=== PATIENT | male | born 1975 | race Caucasian/White ===

== ENCOUNTER 2019-11-19 08:50 | Emergency (ER) | payer OTHER, SELFPAY ==
[2019-11-19 08:31] VITALS: BMI 34.2
[2019-11-19 08:52] VITALS: BP 207/123; PULSE 92; RESP 16; TEMP 36.4; O2SAT 98; BMI 34.2
--- NOTE | 2019-11-19 09:09 | ED.VIS.GEN ---
History of Present Illness Chief Complaint: Upper Extremity Injury Informant: Patient Onset: Weeks Context: Gradual Onset Timing: Continuous Narrative: Patient is a 44-year-old male with history of gout presenting with elevated blood pressure as well as concern for gouty flare to his left hand. Patient went to the [facility] clinic earlier today to be evaluated for his hands. There his blood pressure was elevated he was sent to the emergency room for further evaluation. Patient states he has been told that he has had mildly high blood pressure in the past but was never started any medication. He last saw primary care doctor about 3 years ago. He notes that he has had multiple gouty flares in his legs but never in his hands. He states he has been having pain, redness and swelling for about a month. The symptoms seem to be worse over his fourth and fifth metacarpals. He states pain is worse with movement especially when he tries to lift something. He denies any fever, chills or other symptoms. He is not take any medication and has been intermittently taking Aleve for his symptoms currently. Past Medical History - Allergies and Home Meds Allergies/Adverse Reactions: Allergies No Known Allergies Allergy (Verified 11/19/19 08:50) Primary Care Physician: Tai Pascal DO [NON CLINICAL AFFILIATE] - Past Medical History: - - gout Surgical History: no surgical history Smoking Status: Never smoker Alcohol: None Drugs: None Review of Systems General: Denies: Chills, Fever, Malaise, Sweats Eyes: Denies: Visual changes - bilaterally, Diplopia ENT: Denies: Rhinorrhea, Sore throat Cardiovascular: Denies: Chest pain, Palpitations Respiratory: Denies: Dyspnea, Cough, Dyspnea on exertion Gastrointestinal: Denies: Abdominal pain, Nausea, Vomiting, Diarrhea, Melena, Hematochezia Genitourinary: Denies: Dysuria, Hematuria, Frequency Musculoskeletal: Reports: Swelling - left hand , Extremity Pain - left hand . Denies: Back pain Skin: Reports: Rash - left hand redness . Denies: Wounds Neurological: Denies: Headache, Weakness, Numbness Physical Exam Vital Signs/Narrative: Vital Signs Temp Pulse Resp BP Pulse Ox 11/19/19 08:52 97.5 F L 92 16 207/123 H 98 Inital Vital Signs reviewed: Yes General: Well nourished, Well developed, No Acute Distress Head: Normocephalic, Atraumatic Eyes: Perrl, EOMI ENT: Moist mucous membranes, No rhinorrhea Neck: Supple, Nontender Cardiovascular: Regular rate, Regular rhythm, No murmurs Respiratory: No distress, CTA bilaterally, Chest nontender. Negative for: Rhonchi, Wheezing Abdomen: Soft, Nontender, Nondistended, Normal bowel sounds Back: Nontender, Normal Inspection Extremities: Tenderness, Edema, - - Tenderness palpation with range of motion of the left fourth and fifth MCPs as well as the wrist, no pinpoint bony tenderness, soft tissue swelling diffusely of the left hand Skin: No rash, Rash - Edema and warmth of the left lateral hand, dorsal aspect, no streaking or fluctuance Neurological: Alert, Oriented x3, Cranial nerves II-XII grossly intact, Normal Strength, Normal Sensation Psychological: Normal affect, Normal Mood Diagnostic/Tx/Re-eval Clinical Impression(s) from Imaging Studies Hand X-Ray 11/19/19 09:24 IMPRESSION: Normal x-ray examination of the hand. Electronically Signed: Wilder Barbosa, at 9:46 EST Tel , Service support , Laboratory Data 11/19/19 11/19/19 09:16 09:16 WBC 4.7 RBC 4.59 L Hgb 15.2 Hct 44.8 MCV 97.6 H MCH 33.1 H MCHC 33.9 RDW Std Deviation 41.8 RDW Coeff of Liz 11.7 Plt Count 224 MPV 9.1 Immature Gran % (Auto) 0.400 Neut % (Auto) 66.9 Lymph % (Auto) 20.5 [place] % (Auto) 7.5 Eos % (Auto) 3.8 Baso % (Auto) 0.9 Absolute Neuts (auto) 3.1 Absolute Lymphs (auto) 0.96 Nucleated RBC % 0 Sodium 137 Potassium 4.2 Chloride 103 Carbon Dioxide 31.0 Anion Gap 3 L BUN 13 Creatinine 1.05 Estim Creat Clear Calc 85.95 Est GFR (MDRD) Af Amer 98 Est GFR (MDRD) Non-Af 81 BUN/Creatinine Ratio 12.4 Glucose 115 H Calcium 9.2 - Medical Decision Making Patient is brought to the emergency room for concern of elevated blood pressure at outpatient clinic. Patient is hypertensive in the emergency room but he is otherwise asymptomatic. He does not have any chest pain, stroke symptoms or signs/symptoms consistent with hypertensive emergency. I did check a creatinine which does not show any signs of MELISSA. Patient not having chest pains I do not think an EKG is indicated. His wrist x-ray is negative. Likely he does have a gouty flare of his left hand. Patient's had steroids in the past and states they did not agree with him caused him to feel very anxious and had palpitations. I will not prescribe him. He is given a 1.2 mg dose of colchicine in the emergency room. Patient will be treated with NSAID therapy. I do not think he has a septic joint. There is no findings of overlying or cellulitis. He is instructed on the importance of following up with a primary care doctor as he might benefit from long-term allopurinol use as well as further monitoring of his blood pressure. At this time I would not start patient on antihypertensives as his blood pressure has improved significantly without any intervention. Patient seems to think it is more secondary to his anxiety bout being in the ER. Patient is counseled on signs and symptoms requiring return to the emergency room. Patient verbalizes agreement and understand this plan. Patient discharged home in stable and improved condition. ED Disposition - Plan for ED Patient: Disposition: Home or Assisted Living Diagnosis: Hypertension, Gout of left hand Instructions: Gouty Arthritis, HYPERTENSION, To Be Confirmed Prescriptions: Ibuprofen [Motrin] 600 mg PO Q6H PRN PRN #20 tab PRN Reason: Pain/Inflammation Prescription Printed Referrals: Tai Pascal DO [NON CLINICAL AFFILIATE] - Additional Instructions: Your blood pressure was quite elevated when you came in today. It is returning to more normal numbers throughout your stay. At this time we will not start you on new blood pressure medications. It could have been elevated because of pain or anxiety however this needs to be rechecked at her primary care doctor. Please follow-up the primary care doctor as well to see if you need put on any maintenance therapy for your gout. We will not do steroids at this time so we do not cause that side effect that she did not tolerate it well last time. Please return to the emergency room with any fever or worsening symptoms.
--- NOTE | 2019-11-19 09:24 | RAD_ITS ---
STUDY: X-RAY - LEFT HAND REASON FOR EXAM: Male, 44 years old. pain and swelling; no recent injury; history of gout TECHNIQUE: 4 view(s) of the hand. COMPARISON: None. FINDINGS: Normal radiocarpal articulation. Normal distal radioulnar joint. Normal visualized carpal bones. Normal carpal articulations Normal carpometacarpal articulation of the thumb. Normal second through fifth carpometacarpal joints. Normal metacarpi. Normal metacarpophalangeal joint of the thumb. Normal interphalangeal joint of the thumb. Normal proximal and distal phalanges of the thumb. Normal metacarpophalangeal joints of the second through fifth fingers. Normal proximal and distal interphalangeal joints of the second through fifth fingers. Normal phalanges of the second through fifth fingers. The soft tissue structures are unremarkable. RAD/Hand Min 3 Views IMPRESSION: Normal x-ray examination of the hand. Electronically Signed: Wilder Barbosa, at 9:46 EST Tel , Service support ,
[2019-11-19 09:29] LABS: Absolute Lymphocyte Count 0.96 X10^3/uL (0.83-4.51); Absolute Neutrophil Count 3.1 X10^3/uL (2.0-7.7); Basophil# 0.04 X10^3/uL; Basophil% 0.9 % (0-1); Eosinophil# 0.18 X10^3/uL; Eosinophils% 3.8 % (0-5); Hematocrit 44.8 % (40-54); Hemoglobin 15.2 g/dL (13.0-16.5); Lymphocyte # 0.96 X10^3/ul (4.0); Lymphocyte % 20.5 % (19-41); Mean Corp Hgb Conc 33.9 g/dL (32-36); Mean Corpuscular Hgb 33.1 pg (27.0-32.0); Mean Corpuscular Volume 97.6 fL (80-94); Mean Platelet Vol. 9.1 fl (6.2-12.0); Monocyte# 0.35 X10^3/uL; Monocyte% 7.5 % (0-10); NRBC Flagged by Analyzer 0 % (0-5); Neutrophil # 3.14 X10^3/uL (2.7-7.7); Neutrophil % 66.9 % (47-70); Platelet Count 224 K/mm3 (150-450); RBC Distribution Width CV 11.7 % (11.6-14.6); RBC Distribution Width SD 41.8 fl (35.1-43.9); Red Blood Count 4.59 M/mm3 (4.6-6.2); White Blood Count 4.7 K/mm3 (4.4-11.0)
[2019-11-19] MEDS: Ibuprofen 600 MG Tablet PO (09:32)
[2019-11-19 09:41] LABS: Anion Gap 3 (5-15); BUN 13 mg/dL (7-18); BUN/Creat Ratio 12.4 RATIO (10-20); Calcium,Total 9.2 mg/dL (8.5-10.1); Chloride 103 mmol/L (98-107); Creatinine, Serum 1.05 mg/dL (0.70-1.30); EST Glomerular Filtration Rate 81 mL/min (>60); Est Glom Filt Rate - Afr Amer 98 mL/min (>60); Estimated Creatinine Clearance 85.95 ml/min; Glucose 115 mg/dL (74-106); Potassium 4.2 mmol/L (3.5-5.1); Sodium Level 137 mmol/L (136-145)
[2019-11-19 10:09] VITALS: BP 174/114
[2019-11-19 11:47] VITALS: BP 148/98; PULSE 81; RESP 16; O2SAT 98
== END 2019-11-19 11:49 | disposition home or self-care (01) ==
PROVIDERS: Emergency Provider Emergency Medicine
DX: M10.9 Gout, unspecified (principal); I10 Essential (primary) hypertension
CPT/HCPCS: 73130; 80048; 85025; 99285; A4216

== ENCOUNTER → 2025-03-18 | Outpatient (CLI) | payer OTHER, SELFPAY ==
[2025-03-18 12:38] LABS: Absolute Lymphocyte Count 1.37 X10^3/uL (0.83-4.51); Absolute Neutrophil Count 5.1 X10^3/uL (2.0-7.7); Basophil# 0.02 X10^3/uL; Basophil% 0.3 % (0-1); Eosinophil# 0.03 X10^3/uL; Eosinophils% 0.4 % (0-5); Hemoglobin 13.5 g/dL (13.0-16.5); Lymphocyte # 1.37 X10^3/ul (0.83-4.51); Lymphocyte % 19.2 % (19-41); Mean Corp Hgb Conc 35.5 g/dL (32-36); Mean Corpuscular Hgb 34.1 pg (27.0-32.0); Mean Platelet Vol. 9.5 fl (6.2-12.0); Monocyte# 0.58 X10^3/uL; Monocyte% 8.1 % (0-10); NRBC Flagged by Analyzer 0 % (0-5); Neutrophil # 5.09 X10^3/uL (2.7-7.7); Neutrophil % 71.6 % (47-70); Platelet Count 287 K/mm3 (150-450); RBC Distribution Width CV 12.1 % (11.6-14.6); RBC Distribution Width SD 41.8 fl (35.1-43.9); Red Blood Count 3.96 M/mm3 (4.6-6.2); White Blood Count 7.1 K/mm3 (4.4-11.0)
[2025-03-18 13:22] LABS: ALB/GLOB Ratio 1.5 RATIO (0.9-2.4); AST(SGOT) 20 U/L (<=37); Alanine Aminotransfer ALT/SGPT 31 U/L (<=46); Albumin, Serum 4.6 g/dL (3.5-5.0); Alkaline Phosphatase 89 U/L (40-129); Anion Gap 13 (5-15); BUN 12 mg/dL (4-19); BUN/Creat Ratio 14.6 RATIO (10-20); Calcium,Total 9.7 mg/dL (7.6-11.0); Chloride 99 mmol/L (98-108); Cholesterol 226 mg/dL (<=200); Creatinine, Serum 0.85 mg/dL (0.70-1.20); EST Glomerular Filtration Rate 106 (>60); Globulin 3.1 g/dL (2.2-4.2); Glucose 109 mg/dL (70-99); High Density Lipoprotein 60 mg/dL; Low Density Lipoprotein Calc. 134 mg/dL; Potassium 3.9 mmol/L (3.3-5.1); Protein, Total 7.6 g/dL (5.9-8.4); Sodium Level 135 mmol/L (133-145); Total Bilirubin 0.67 mg/dL (0.00-1.30); Triglycerides 158 mg/dL; Very Low Density Lipoprotein 32 mg/dL (5-40); cholesterol:hdl ratio screen 3.75
[2025-03-18 13:47] LABS: PSA,Total - Annual Screen 0.79 ng/mL (0.02-4.00)
== END | disposition home or self-care (01) ==
LOC: BFHLAB 11:10
PROVIDERS: PCP Nurse Practitioner Family; Visit Provider Nurse Practitioner Family
DX: Z00.01 Encounter for general adult medical examination with abnormal findings (principal); Z12.5 Encounter for screening for malignant neoplasm of prostate; M10.9 Gout, unspecified
CPT/HCPCS: 36415; 80053; 80061; 84153; 85025; G0103